=== PATIENT | female | born 1950 | race Two or more races ===

== ENCOUNTER 2019-08-21 08:00 | Day surgery (SDC) | payer MEDICARE, MEDICAID ==
[2019-08-21] VITALS (9 sets, daily range): BP systolic 104–137; BP diastolic 58–70
[~2019-08-21] VITALS: Ht 149.9 cm; Wt 81.6 kg
--- NOTE | 2019-08-21 07:02 | Pre-Procedure Note/Attestation ---
Pre-Procedure Note/Attestation Complete Prior to Procedure Planned Procedure: left Procedure Narrative: left shoulder WILLIAM with injection Indications for Procedure Pre-Operative Diagnosis: left frozen shoulder Attestation I attest that I discussed the nature of the procedure; its benefits; risks and complications; and alternatives (and the risks and benefits of such alternatives ), prior to the procedure, with the patient (or the patient's legal marketing sales representative). I attest that, if there was a reasonable possibility of needing a blood transfusion, the patient (or the patient's legal marketing sales representative) was given the [facility] standardized written summary, pursuant to the [place] Blood Safety Act ([place] Health and Safety Code # 1645, as amended). I attest that I re-evaluated the patient just prior to the surgery and that there has been no change in the patient's H&P, except as documented below: Papo Mustafa MD Aug 21, 2019 07:02
[~2019-08-21 08:00] MED LIST: ceFAZolin 1gm IVPB IVPB ONE; celeBREX 200mg Cap **SURGERY PATIENTS ONLY ORAL ONE; oxyCONTIN 20mg tab ORAL ONE
[2019-08-21] MEDS ORDERED: BP MED PO (08:45)
[2019-08-21] MEDS ORDERED: XANAX0.25 MG ORAL (08:45)
[2019-08-21] MEDS ORDERED: FISH OIL CAP1000 MG ORAL (08:45)
[2019-08-21] MEDS ORDERED: ASPIR 8181 MG ORAL (08:45)
[2019-08-21] MEDS ORDERED: SIMVASTATIN40 MG ORAL (08:45)
[2019-08-21] MEDS ORDERED: SINGULAIR10 MG ORAL (08:45)
[2019-08-21] MEDS ORDERED: VITAMIN B122500 MCG PO (08:45)
[2019-08-21] MEDS ORDERED: oxyCONTIN 20mg tab ORAL ONE (08:49)
[2019-08-21] MEDS ORDERED: celeBREX 200mg Cap **SURGERY PATIENTS ONLY ORAL ONE (08:54)
[2019-08-21] MEDS ORDERED: Midazolam 2mg/2ml Inj ONE (10:11)
[2019-08-21] MEDS ORDERED: fentaNYL 100 mcg/2 mL IV ONE (10:11)
[2019-08-21] MEDS ORDERED: Lidocaine 1% MPF 10mg/ml 5ml ONE (10:35)
[2019-08-21] MEDS ORDERED: Propofol 200mg/20ml IV ONE (10:35)
[2019-08-21] MEDS ORDERED: Ropivacaine 5mg/ml Vial 30ml INJ ONE (10:35)
[2019-08-21] MEDS ORDERED: Sterile Water Irrig 1000ml IRRIG ONE (10:42)
[2019-08-21] MEDS ORDERED: LR 1000ml ONE (10:42)
[2019-08-21] MEDS ORDERED: Kenalog-40 1ml Vial IARTIC ONE (10:45)
[2019-08-21] MEDS ORDERED: HYDROcodone/Acetamin 5/325 tab ORAL PRN (10:45)
[2019-08-21] MEDS ORDERED: Bupivacaine w/Epi 0.5% 30ml Vial INJ ONE (10:45)
[2019-08-21] MEDS ORDERED: HYDROmorphone 1mg/ml Carpuject SUBQ PRN (10:45)
[2019-08-21] MEDS ORDERED: Tylenol #3 tab (300mg/30mg) ORAL PRN (10:45)
[2019-08-21] MEDS ORDERED: Isovue-300 100ml vial INJ ONE (10:45)
--- NOTE | 2019-08-21 11:34 | Anethesia Preoperative Eval ---
Anesthesia Pre-op PMH/ROS General Date of Evaluation: Aug 21, 2019 Time of Evaluation: 10:40 Anesthesiologist: yumiko ASA Score: ASA 2 Mallampati Score Class I : Soft palate, uvula, fauces, pillars visible Class II: Soft palate, uvula, fauces visible Class III: Soft palate, base of uvula visible Class IV: Only hard plate visible Mallampati Classification: Class II Surgeon: Moon Diagnosis: Frozen shoulder Surgical Procedure: Left shoulder manipulation under GA Anesthesia History: none Family History: no anesthesia problems Allergies: Coded Allergies: No Known Allergies (Unverified , 08/21/19) Medications: see eMAR Patient NPO?: Yes NPO Date: Aug 21, 2019 NPO Time: 00:01 Past Medical History Cardiovascular: Reports: HTN; Denies: CAD, [place], valve dz, arrhythmia, other Pulmonary: Denies: asthma, COPD, ALYSSIA, other Gastrointestinal/Genitourinary: Denies: GERD, CRI, ESRD, other Neurologic/Psychiatric: Denies: dementia, CVA, depression/anxiety, TIA, other Endocrine: Denies: DM, hypothyroidism, steroids, other HEENT: Denies: cataract (L), cataract (R), glaucoma, [place] (L), [place] (R), other Hematology/Immune: Denies: anemia, DVT, bleeding disorder, other Musculoskeletal/Integumentary: Denies: OA, RA, DJD, DDD, edema, other PSxH Narrative: denies Anesthesia Pre-op Phys. Exam Physician Exam Last Vital Signs Date Time Temp Pulse Resp B/P (MAP) Pulse Ox O2 Delivery O2 Flow Rate FiO2 08/21/19 11:25 69 17 134/61 100 Simple Mask 6 08/21/19 11:20 98.1 Constitutional: NAD Neurologic: CN 2-12 intact Cardiovascular: RRR Respiratory: CTA Gastrointestinal: S/NT/ND Airway Exam Mallampati Classification 2 Mallampati Score: Class II MO: full ROM: full Dentures: no upper, no lower Anesthesia Pre-op A/P Studies Pre-op Studies: EKG - SR Risk Assessment & Plan Assessment: denies changes in health last two weeks Plan: General/Peripheral nerve block Status Change Before Surgery: No Pre-Antibiotics Drug: none Felicity Robles CRNA Aug 21, 2019 11:34
--- NOTE | 2019-08-21 11:35 | Immediate Post-Op Evaluation ---
Immediate Post-Op Evalulation Immediate Post-Op Evalulation Procedure: left shoulder manipulation under general Date of Evaluation: Aug 21, 2019 Time of Evaluation: 11:25 IV Fluids: 600 Blood Pressure Systolic: 127 Blood Pressure Diastolic: 65 Pulse Rate: 70 Respiratory Rate: 14 O2 Sat by Pulse Oximetry: 100 Temperature (Fahrenheit): 98.1 Pain Score (1-10): 0 Nausea: No Vomiting: No Patient Status: awake, reacts, patent Hydration Status: adequate Drug: none MayteriFelicity kim CRNA Aug 21, 2019 11:35
[2019-08-21] MEDS ORDERED: fentaNYL 100 mcg/2 mL IV PRN (11:45)
--- NOTE | 2019-08-21 12:27 | 48 Hour Post Anesthesia Eval ---
Post Anesthesia Evaluation Procedure: left shoulder manipulation under general Date of Evaluation: Aug 21, 2019 Time of Evaluation: 12:27 Blood Pressure Systolic: 136 0: 63 Pulse Rate: 70 Respiratory Rate: 14 O2 Sat by Pulse Oximetry: 98 Airway: patent Nausea: No Vomiting: No Pain Intensity: 0 Hydration Status: adequate Cardiopulmonary Status: na Mental Status/LOC: patient returned to baseline Post-Anesthesia Complications: none Follow-up care needed: N/A Felicity Robles CRNA Aug 21, 2019 12:27
[2019-08-21] MEDS ORDERED: HYDROcodone/Acetamin 5/325 tab ONE (12:37)
[2019-08-21] MEDS ORDERED: D5 1/2NS 1,000 ML IV SCH (13:00)
--- NOTE | 2019-08-21 13:00 | Brief Operative Note ---
Immediate Post Operative Note Operative Note Pre-op Diagnosis: left frozen shoulder Procedure: Left shoulder WILLIAM, arthrogram, Injection with Marcaine and Kenelog Post-op Diagnosis: same as pre-op Surgeon: ruel Wafer Production Worker: Deanna Anesthesiologist: Felicity BYRNE Anesthesia: general Specimen: none Complications: none Condition: stable Fluids: 500cc Estimated Blood Loss: none Drains: none Implant(s) used?: No Papo Mustafa MD Aug 21, 2019 13:00
--- NOTE | 2019-08-21 15:26 | Diagnostic Imaging Report ---
INDICATION: Pain, intraoperative TECHNIQUE: Intraoperative imaging Fluoroscopy time: 6.6 seconds Total dose: 0.16364 mGym2 Total number of images: 6 3 COMPARISON: None FINDINGS: Intraoperative images demonstrate contrast opacification of the left shoulder joint and surrounding bursae. IMPRESSION: Intraoperative imaging, as described
--- NOTE | 2019-08-21 17:30 | Operative Note - Dictated ---
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 POSTOPERATIVE DIAGNOSIS: Left shoulder adhesive capsulitis after a proximal humerus fracture. PROCEDURE: 1. Left shoulder manipulation under anesthesia. 2. Left shoulder arthrogram. 3. Left shoulder intra-articular injection of 4 mL lidocaine and 2 mL of Kenalog at 40 mg/mL. SURGEON: Papo Mustafa M.D. POT RUNNER: Kira Huerta PA-C. ANESTHESIOLOGIST: Felicity Robles CRNA, nurse belt back operator. ANESTHESIA: General LMA anesthesia. ESTIMATED BLOOD LOSS: None. COMPLICATIONS: None. BRIEF HISTORY: The patient is a pleasant 69-year-old female who has had ongoing left shoulder pain after a proximal humerus fracture. She had decreased range of motion, stiffness, and inability to raise her arm. After full discussion of risks and benefits of the surgery and complications associated with it including infection, bleeding, neurovascular complication, possibility of proximal humerus fracture, possibility of continued pain, possible stiffness, possible need for further surgery including arthroscopic surgery, she opted for surgical treatment as described above. OPERATIVE PROCEDURE: The patient was brought to the operating room table and was placed supine. All pressure points were well padded. General LMA anesthesia was induced and the left shoulder was gently manipulated. The shoulder was brought into full flexion, abduction, external rotation, internal rotation. There were multiple soft cracks could be felt and the capsule was released. At this point, once this was completed, there was great range of motion. The posterior capsule was reduced by adducting the shoulder and there was light crackling could be felt as the capsule was released. At this point, intraoperative fluoroscopy was brought in. The anterior aspect of the shoulder was prepped. A spinal needle was placed intra-articularly and an arthrogram was performed. This showed that the dye was intra-articular and there was no evidence of rotator cuff tear. The inferior capsule had torn and some of the dye had gone into the axillary recess. At this point, the shoulder was injected with 4 mL of lidocaine with 2 mL of Kenalog. The patient tolerated procedure well. The spinal needle was removed and a Band-Aid was applied. The patient was taken to recovery room in stable condition. Interscalene block performed by nurse belt back operator after the procedure was completed. Papo Sanjay Mustafa DR: CELESTE JOB#: [id number] CC:
== END 2019-08-21 14:15 | disposition home or self-care (01) ==
LOC: SUR 08:00
DX: M75.02 Adhesive capsulitis of left shoulder (principal); I10 Essential (primary) hypertension
CPT/HCPCS: 23350; 23700; 73020; 76000; J2250; J2405; J2704; J2795; J3010; J3301; Q9967; 94003; 94150